=== PATIENT | female | born 1980 | race Caucasian/White ===

== ENCOUNTER 2019-02-10 16:40 | Inpatient (IN) | payer OTHER ==
[~2019-02-10] VITALS: Ht 160 cm; Wt 108.0 kg
--- NOTE | 2019-02-10 16:40 | NUR ---
PT BIBSEMIRANDA FROM [facility] FOR CP AND DIZZINESS X 10 DAYS, PT AAOX4, -SOB, NAD NOTED, VSS ,PENDING MD BHAT
[2019-02-10] MEDS ORDERED: IV NS 0.9% 1,000 ML BAG IV ONE (17:00)
[2019-02-10 17:08] LABS: BASOPHILS # (AUTO) 0.1 /CMM (0.0-0.2); EOSINOPHILS % (AUTO) 5.7 % (0.0-6.0); HEMATOCRIT 24 % (33-45); HEMOGLOBIN 7.4 g/dL (11.5-14.8); LYMPHOCYTES # (AUTO) 2.3 /CMM (0.8-4.8); LYMPHOCYTES % (AUTO) 26.3 % (20.0-44.0); MEAN CORPUSCULAR HGB CONC 31 g/dl (31.0-36.0); MEAN CORPUSCULAR VOLUME 64 fL (82-100); MONOCYTES # (AUTO) 0.7 /CMM (0.1-1.30); MONOCYTES % (AUTO) 8.1 % (2.0-12.0); NEUTROPHILS # (AUTO) 5.1 /CMM (1.8-8.9); NEUTROPHILS % (AUTO) 58.9 % (43.0-81.0); PLATELET COUNT (AUTO) 259 /CMM (150-450); RED BLOOD CELL COUNT(AUTO) 3.77 MIL/uL (4.0-5.2); WHITE BLOOD COUNT (AUTO) 8.6 K/uL (4.3-11.0)
[2019-02-10 17:19] LABS: CALCIUM, SERUM 8.6 mg/dL (8.5-10.1); CARBON DIOXIDE 23 mmol/L (21-32); CHLORIDE 101 mmol/L (98-107); CREATININE 0.7 mg/dL (0.6-1.3); GLUCOSE 75 mg/dL (74-106); POTASSIUM 3.5 mmol/L (3.5-5.1); SODIUM SERUM 134 mmol/L (136-145); UREA NITROGEN, BLOOD 11 mg/dL (7-18)
[2019-02-10 17:24] LABS: ALANINE AMINOTRANSFERASE 16 U/L (12-78); ALBUMIN 3.3 g/dL (3.4-5.0); ALKALINE PHOSPHATASE 51 U/L (46-116); ASPARTATE AMINOTRANSFERASE 10 U/L (15-37); BILIRUBIN,DIRECT 0.1 mg/dL (0.0-0.2); BILIRUBIN,TOTAL 0.3 mg/dL (0.2-1.0); TOTAL PROTEIN, SERUM 7.3 g/dL (6.4-8.2)
[2019-02-10 17:32] LABS: THYROID STIMULATING HORMONE 73.067 uIU/mL (0.358-3.74)
[2019-02-10 17:52] LABS: BAND % (MANUAL) 1 % (0.0-5.0); EOSINOPHILS % (MANUAL) 4 % (0-4); LYMPHOCYTES % (MANUAL) 25 % (16-48); MONOCYTES % (MANUAL) 2 % (0-11.0); NEUTROPHILS % (MANUAL) 68 (42-76)
--- NOTE | 2019-02-10 19:26 | NUR ---
CALLED BEATRIZ CRUZ DNP PAGED
[2019-02-10 19:38] LABS: APPEARANCE,URINE SL CLOUDY (CLEAR); BILIRUBIN,URINE NEGATIVE (NEGATIVE); BLOOD, URINE TRACE Ery/uL (NEGATIVE); COLOR,URINE YELLOW (YELLOW); KETONES,URINE NEGATIVE (NEGATIVE); LEUKOCYTE ESTERASE ,URINE 2+ (NEGATIVE); NITRITE, URINE NEGATIVE (NEGATIVE); PROTEIN,URINE NEGATIVE (NEGATIVE); UGLUCOSE NEGATIVE (NEGATIVE); UROBILINOGEN,URINE 0.2 EU/dL (0.2)
[2019-02-10 19:57] LABS: BACTERIA,URINE 3+ /HPF (None Seen); SQUAMOUS EPITHELIAL CELL,UR 0-2 /HPF (None Seen); WBC,URINE 21-50 /HPF (0-3)
--- NOTE | 2019-02-10 20:04 | NUR ---
REPORT GIVEN TO MARIANO SINGH FOR LEIGHTON.
[2019-02-10 20:30] VITALS: BP 111/72
--- NOTE | 2019-02-10 20:39 | NUR ---
RN OPENING NOTES PT RECEIVED FROM ER VIA [place]. A/OX4. ON ROOM AIR, BREATHING EVEN AND UNLABORED. DENIES SOB AT THIS TIME. SLIGHTLY NAUSEOUS AND C/O HEADACHE 11/23. IV TO RAC PATENT AND INTACT. ORIENTED PT TO ROOM AND CALL LIGHT. HOB ELEVATED. BILAT. UPPER SIDE RAILS IN PLACE. AWAITING ADMITTING ORDERED. WILL CONTINUE TO MONITOR
[2019-02-10 20:51] VITALS: BP 111/72
[2019-02-10] MEDS ORDERED: ASPIRIN/ACETAMINOPHEN/CAFFEINE 1 EACH TABLET PO ONE (21:30)
[2019-02-10] MEDS ORDERED: ACETAMINOPHEN 325 MG TABLET PO PRN (22:00)
[2019-02-10] MEDS ORDERED: ONDANSETRON HCL/PF 4 MG/2 ML VIAL IV PRN (22:00)
[2019-02-10] MEDS ORDERED: ONDANSETRON HCL/PF 4 MG/2 ML VIAL IVP PRN (23:30)
[2019-02-11] MEDS: IV LR 1000 ML 1,000 ML IV PRN ×2 (00:07→11:16)
[2019-02-11] MEDS: CEPHALEXIN MONOHYDRATE 250 MG CAPSULE PO SCH ×5 (00:07→23:07)
--- NOTE | 2019-02-11 06:32 | NUR ---
MS/RN CLOSING NOTES PT ASLEEP, RESPONSIVE TO NAME. A/OX4. ON ROOM AIR, BREATHING EVEN AND UNLABORED. DENIES SOB, CP AND N/V AT THIS TIME. HOB ELEVATED. NO SIGNIFICANT CHANGES OVERNIGHT. ALL NEEDS MET AND ANTICIPATED. BED IN LOW/LOCKED POSITION WITH CALL LIGHT IN REACH. BILAT. UPPER SIDE RAILS IN PLACE. IV TO RAC PATENT AND INTACT RUNNING IVF ORDERED. WILL ENDORSE TO DAY SHIFT RN LEIGHTON.
[2019-02-11 06:53] LABS: BILIRUBIN,TOTAL 0.3 mg/dL (0.2-1.0); CALCIUM, SERUM 8.2 mg/dL (8.5-10.1); CREATININE 0.8 mg/dL (0.6-1.3); MAGNESIUM 1.9 mg/dL (1.8-2.4); PHOSPHORUS 3.7 mg/dL (2.5-4.9); POTASSIUM 3.3 mmol/L (3.5-5.1); TOTAL PROTEIN, SERUM 6.8 g/dL (6.4-8.2)
[2019-02-11 06:55] LABS: BASOPHILS # (AUTO) 0.1 /CMM (0.0-0.2); BASOPHILS % (AUTO) 1.3 % (0.0-2.0); EOSINOPHILS % (AUTO) 7.5 % (0.0-6.0); HEMATOCRIT 23 % (33-45); HEMOGLOBIN 7.1 g/dL (11.5-14.8); LYMPHOCYTES # (AUTO) 2.2 /CMM (0.8-4.8); MEAN CORPUSCULAR HGB CONC 30 g/dl (31.0-36.0); MEAN CORPUSCULAR VOLUME 65 fL (82-100); MONOCYTES # (AUTO) 0.6 /CMM (0.1-1.30); MONOCYTES % (AUTO) 7.8 % (2.0-12.0); NEUTROPHILS # (AUTO) 3.8 /CMM (1.8-8.9); NEUTROPHILS % (AUTO) 52.4 % (43.0-81.0); PLATELET COUNT (AUTO) 239 /CMM (150-450); WHITE BLOOD COUNT (AUTO) 7.2 K/uL (4.3-11.0)
[2019-02-11 06:58] LABS: THYROID STIMULATING HORMONE 88.596 uIU/mL (0.358-3.74)
--- NOTE | 2019-02-11 07:24 | NUR ---
MS RN NOTES RECEIVED PATIENT RESTING COMFORTABLY IN BED IN MODERATE HIGH BACK REST. A/OX 4. NO COMPLAIN OF PAIN/DISCOMFORT AT THIS TIME. IV FLUIDS ON RIGHT AC #20 WITH LR @100ML/HR, PATENT AND INTACT. SAFETY MEASURES IN PLACE. BED IN LOW LOCKED POSITION WITH SIDE RAILS UP X 2. CALL LIGHT WITHIN EASY REACH. WILL CONTINUE TO MONITOR.
[2019-02-11] MEDS: LEVOTHYROXINE SODIUM 75 MCG TABLET PO SCH (07:35)
[2019-02-11 08:00] VITALS: BP 98/55
[2019-02-11] MEDS ORDERED: POTASSIUM CHLORIDE 20 MEQ TAB.PRT.SR PO SCH (10:00)
[2019-02-11] MEDS: ACETAMINOPHEN 325 MG TABLET PO PRN ×2 (11:38→18:10)
[2019-02-11] MEDS: SOD FERRIC GLUC 125 MG in IV NS 0.9% 100 ML IV SCH (13:42)
[2019-02-11 16:00] VITALS: BP 112/67
--- NOTE | 2019-02-11 19:12 | NUR ---
MS RN NOTES PATIENT IN BED RESTING COMFORTABLY IN MODERATE HIGH BACK REST. A/OX 4. IV ACCESS ON RIGHT AC #20, ON SL. PATENT AND INTACT. SAFETY MEASURES IN PLACE. BED IN LOW LOCKED POSITION WITH SIDE RAILS UP X 2. CALL LIGHT WITHIN EASY REACH. WILL ENDORSE TO ED TECH NURSE FOR LEIGHTON.
--- NOTE | 2019-02-11 19:30 | NUR ---
MS/RN OPENING NOTES PT RECEIVED AWAKE, FAMILY MEMBERS AT BEDSIDE. A/OX3. ON ROOM AIR, BREATHING EVEN AND UNLABORED. DENIES SOB AND PAIN AT THIS TIME. IV TO RAC PATENT AND INTACT. HOB ELEVATED. NO NEEDS EXPRESSED AT THIS TIME. NO C/O CP, N/V. BED IN LOW/LOCKED POSITION WITH CALL LIGHT IN REACH. BILAT. UPPER SIDE RAILS IN PLACE. WILL CONTINUE TO MONITOR
[2019-02-11 20:00] VITALS: BP 100/59
--- NOTE | 2019-02-12 00:04 | NUR ---
MS/RN NOTES PT C/O INSOMNIA. REQUESTING MEDICATION FOR SLEEP. WILMA CRUZ WITH ORDERS FOR BENADRYL 50MG PO QHS. WILL CARRY OUT
[2019-02-12] MEDS ORDERED: diphenhydrAMINE HCL 50 MG CAPSULE PO PRN (00:30)
[2019-02-12] MEDS: CEPHALEXIN MONOHYDRATE 250 MG CAPSULE PO SCH ×2 (06:25→12:58)
[2019-02-12] MEDS: LEVOTHYROXINE SODIUM 75 MCG TABLET PO SCH (06:30)
--- NOTE | 2019-02-12 06:41 | NUR ---
MS/RN CLOSING NOTES PT WITH EYES CLOSED. RESPONSIVE TO NAME. HOB ELEVATED. ON ROOM AIR, BREATHING EVEN AND UNLABORED. DENIES SOB AND PAIN AT THIS TIME. IV TO RAC PATENT AND INTACT. NO SIGNIFICANT CHANGES OVERNIGHT. PT SLEPT WELL DURING SHIFT. BED REMAINS IN LOW/LOCKED POSITION WITH CALL LIGHT IN REACH .BILAT. UPPER SIDE RAILS IN PLACE. WILL ENDORSE TO DAY SHIFT RN LEIGHTON.
--- NOTE | 2019-02-12 07:10 | NUR ---
MS RN NOTES PATIENT IN BED ALERT ORIENTED X 4. NO ACUTE DISTRESS NOTED. BREATHING UNLABORED. IV ACCESS PATENT AND INTACT, NO REDNESS OR SWELLING NOTED. SAFETY MEASURES IN PLACE. CALL LIGHT WITHIN REACH. WILL CONTINUE TO MONITOR ACCORDINGLY.
[2019-02-12 07:20] LABS: BASOPHILS # (AUTO) 0.1 /CMM (0.0-0.2); BASOPHILS % (AUTO) 1.4 % (0.0-2.0); EOSINOPHILS % (AUTO) 5.7 % (0.0-6.0); HEMATOCRIT 24 % (33-45); HEMOGLOBIN 7.4 g/dL (11.5-14.8); LYMPHOCYTES # (AUTO) 2.5 /CMM (0.8-4.8); MEAN CORPUSCULAR HGB CONC 30 g/dl (31.0-36.0); MEAN CORPUSCULAR VOLUME 65 fL (82-100); MONOCYTES # (AUTO) 0.6 /CMM (0.1-1.30); MONOCYTES % (AUTO) 7.9 % (2.0-12.0); NEUTROPHILS # (AUTO) 4.3 /CMM (1.8-8.9); PLATELET COUNT (AUTO) 268 /CMM (150-450); RED BLOOD CELL COUNT(AUTO) 3.76 MIL/uL (4.0-5.2); WHITE BLOOD COUNT (AUTO) 7.9 K/uL (4.3-11.0)
[2019-02-12 07:48] LABS: CALCIUM, SERUM 8.7 mg/dL (8.5-10.1); CREATININE 0.8 mg/dL (0.6-1.3); MAGNESIUM 1.9 mg/dL (1.8-2.4); PHOSPHORUS 3.6 mg/dL (2.5-4.9); POTASSIUM 3.9 mmol/L (3.5-5.1)
[2019-02-12 08:07] VITALS: BP 98/60
--- NOTE | 2019-02-12 08:52 | NUR ---
MS RN NOTES SEEN AND EVALUATED BY DR MARU LEE WITH NEW ORDERS MADE.
[2019-02-12] MEDS ORDERED: CEPH250C PO (08:56)
[2019-02-12] MEDS ORDERED: LEVO75TA PO (08:56)
[2019-02-12] MEDS ORDERED: FERR325T23 PO (08:56)
[2019-02-12] MEDS: SOD FERRIC GLUC 125 MG in IV NS 0.9% 100 ML IV SCH (14:11)
--- NOTE | 2019-02-12 16:30 | NUR ---
MS RN NOTES PATIENT DISCHARGE HOME WITH STABLE VITAL SIGNS, NO ACUTE DISTRESS NOTED. BREATHING UNLABORED. DISCHARGE INSTRUCTIONS GIVEN TO THE PATIENT INCLUDING NEW PRESCRIPTIONS AND FOLLOW UP APPOINTMENT VERBALIZED UNDERSTANDING. ALL BELONGINGS ACCOUNTED FOR. IV ACCESS REMOVED, NO BLEEDING, NO REDNESS , NO SWELLING NOTED. SKIN IS INTACT. ASSISTED TO THE LOBBY PICKED UP BY MOTHER VIA PRIVATE CAR IN STABLE CONDITION.
== END 2019-02-12 16:30 | disposition home or self-care (01) | DRG 566 ==
LOC: ER 16:42 → MED 19:52
PROVIDERS: ADMIT Student in an Organized Health Care Education/Training Program; ATTEND Family Medicine
DX: O99.281 Endocrine, nutritional and metabolic diseases complicating pregnancy, first trimester (principal); E44.0 Moderate protein-calorie malnutrition; E87.1 Hypo-osmolality and hyponatremia; E88.09 Other disorders of plasma-protein metabolism, not elsewhere classified; O23.41 Unspecified infection of urinary tract in pregnancy, first trimester; E86.1 Hypovolemia; O99.011 Anemia complicating pregnancy, first trimester; E89.0 Postprocedural hypothyroidism; B96.20 Unspecified Escherichia coli [E. coli] as the cause of diseases classified elsewhere; D50.9 Iron deficiency anemia, unspecified; E87.6 Hypokalemia; R07.9 Chest pain, unspecified; Z3A.01 Less than 8 weeks gestation of pregnancy
CPT/HCPCS: 36415; 71045-TC; 80048-TC; 80053-TC; 80061-TC; 80076-TC; 81000-TC; 83540-TC; 83735-TC; 84100-TC; 84439-TC; 84443-TC; 84481; 84484-TC; 84702-TC; 85025-TC; 85045-TC; 85652-TC; 85730-TC; 86850-TC; 87081-TC; 87086-TC; 87186-TC; G0378; J2405; J2916; J7030; J7120; Q0163

== ENCOUNTER 2019-07-11 06:11 | Emergency (ER) | payer OTHER ==
[~2019-07-11] VITALS: Ht 160 cm; Wt 90.7 kg
[~2019-07-11 06:11] MED LIST: CEPH250C PO; FERR325T23 PO; LEVO75TA PO
--- NOTE | 2019-07-11 06:25 | NUR ---
C/O MIDEPIGASTRIC PAIN RADIATING TO BACK WITH NAUSEA X2 HRS TELESALES MANAGER.
--- NOTE | 2019-07-11 06:30 | NUR ---
at the bed side
[2019-07-11] MEDS ORDERED: LIDOCAINE VISCOUS 2% UD 15 ML UDC ONE (06:43)
[2019-07-11] MEDS ORDERED: FAMOTIDINE/PF INJ 20 MG/2 ML VIAL IV ONE ×2 (06:44→07:00)
[2019-07-11] MEDS ORDERED: MAG HYDROX/AL HYDROX/SIMETH 30 ML UDC ONE (06:44)
[2019-07-11] MEDS ORDERED: ONDANSETRON HCL/PF 4 MG/2 ML VIAL ONE (06:44)
[2019-07-11 06:50] LABS: BASOPHILS # (AUTO) 0.1 /CMM (0.0-0.2); BASOPHILS % (AUTO) 1.6 % (0.0-2.0); EOSINOPHILS % (AUTO) 6.7 % (0.0-6.0); HEMATOCRIT 32 % (33-45); LYMPHOCYTES # (AUTO) 2.4 /CMM (0.8-4.8); LYMPHOCYTES % (AUTO) 30.3 % (20.0-44.0); MEAN CORPUSCULAR HGB CONC 31 g/dl (31.0-36.0); MEAN CORPUSCULAR VOLUME 69 fL (82-100); MONOCYTES # (AUTO) 0.5 /CMM (0.1-1.30); MONOCYTES % (AUTO) 6.6 % (2.0-12.0); NEUTROPHILS # (AUTO) 4.3 /CMM (1.8-8.9); NEUTROPHILS % (AUTO) 54.8 % (43.0-81.0); PLATELET COUNT (AUTO) 284 /CMM (150-450); RED BLOOD CELL COUNT(AUTO) 4.61 MIL/uL (4.0-5.2); WHITE BLOOD COUNT (AUTO) 7.9 K/uL (4.3-11.0)
[2019-07-11 06:51] LABS: APPEARANCE,URINE SL CLOUDY (CLEAR); BILIRUBIN,URINE NEGATIVE (NEGATIVE); BLOOD, URINE MODERATE Ery/uL (NEGATIVE); COLOR,URINE YELLOW (YELLOW); KETONES,URINE NEGATIVE (NEGATIVE); LEUKOCYTE ESTERASE ,URINE MODERATE (NEGATIVE); NITRITE, URINE NEGATIVE (NEGATIVE); PROTEIN,URINE NEGATIVE (NEGATIVE); UGLUCOSE NEGATIVE (NEGATIVE); UROBILINOGEN,URINE 0.2 EU/dL (0.2)
[2019-07-11] MEDS ORDERED: ONDANSETRON HCL/PF 4 MG/2 ML VIAL IVP ONE (07:00)
[2019-07-11] MEDS ORDERED: LIDOCAINE VISCOUS 2% UD 15 ML UDC MM ONE (07:00)
[2019-07-11] MEDS ORDERED: IV NS 0.9% 1,000 ML BAG IV ONE (07:00)
[2019-07-11] MEDS ORDERED: MAG HYDROX/AL HYDROX/SIMETH 30 ML UDC PO ONE (07:00)
[2019-07-11 07:05] LABS: CALCIUM, SERUM 8.4 mg/dL (8.5-10.1); CARBON DIOXIDE 25 mmol/L (21-32); CHLORIDE 106 mmol/L (98-107); GLUCOSE 98 mg/dL (74-106); POTASSIUM 3.8 mmol/L (3.5-5.1); SODIUM SERUM 142 mmol/L (136-145); UREA NITROGEN, BLOOD 19 mg/dL (7-18)
[2019-07-11 07:21] LABS: ALANINE AMINOTRANSFERASE 17 U/L (12-78); ALBUMIN 3.5 g/dL (3.4-5.0); ALKALINE PHOSPHATASE 48 U/L (46-116); ASPARTATE AMINOTRANSFERASE 11 U/L (15-37); BILIRUBIN,DIRECT 0.1 mg/dL (0.0-0.2); BILIRUBIN,TOTAL 0.2 mg/dL (0.2-1.0); LIPASE 270 U/L (73-393); TOTAL PROTEIN, SERUM 7.7 g/dL (6.4-8.2)
[2019-07-11 07:36] LABS: BAND % (MANUAL) 4 % (0.0-5.0); EOSINOPHILS % (MANUAL) 4 % (0-4); LYMPHOCYTES % (MANUAL) 33 % (16-48); MONOCYTES % (MANUAL) 5 % (0-11.0); NEUTROPHILS % (MANUAL) 54 (42-76)
--- NOTE | 2019-07-11 07:40 | NUR ---
PATIENT STILL C/O ABDOMIANL PAIN .BUT IMPROVED.V/S STABLE
[2019-07-11] MEDS ORDERED: MORPHINE SULFATE INJ 2 MG/ML DISP.SYRIN IV ONE (08:00)
[2019-07-11] MEDS ORDERED: MORPHINE SULFATE INJ 2 MG/ML DISP.SYRIN ONE (08:12)
--- NOTE | 2019-07-11 08:30 | NUR ---
IV removed. Catheter intact and site benign. Pressure and 4x4 applied to site. No bleeding noted.
[2019-07-11 08:32] VITALS: BP 116/60
--- NOTE | 2019-07-11 08:33 | NUR ---
DISCHARGE INSTRUCTIONS GIVEN WITH NEW PRESCRIPTIONS.PATIENT VERBALIZED UNDERSTNDING.
--- NOTE | 2019-07-11 08:36 | NUR ---
Patient discharged to home in stable condition. Written and verbal after care instructions given. Patient verbalizes understanding of instruction.
--- NOTE | 2019-07-11 08:46 | NUR ---
PATIENT DISCAHRGED TO WAITING ROOM WITH FAMILY.INSTRUCTED NOT TO DRIVE.
== END 2019-07-11 08:46 | disposition home or self-care (01) ==
LOC: ER 06:16
DX: R10.13 Epigastric pain (principal); R11.2 Nausea with vomiting, unspecified; Z98.890 Other specified postprocedural states; Z88.1 Allergy status to other antibiotic agents; Z79.899 Other long term (current) drug therapy
CPT/HCPCS: 36415; 71045; 80048; 80076; 81001; 83690; 84484; 84703; 85025; 93005; 96361; 96374; 96375; 99284; J2270; J2405; J3490; J7030; 81000-TC

== ENCOUNTER 2020-03-11 23:46 | Emergency (ER) | payer OTHER ==
[~2020-03-11] VITALS: Ht 160 cm; Wt 108.9 kg
[2020-03-12] MEDS ORDERED: ONDANSETRON HCL/PF 4 MG/2 ML VIAL ONE (00:04)
[2020-03-12] MEDS ORDERED: MORPHINE SULFATE INJ 4 MG/ML DISP.SYRIN ONE (00:05)
--- NOTE | 2020-03-12 00:09 | NUR ---
PATIENT CAME TO ER BED 2 C/O RIGHT UPPER ABDOMINAL PAIN RADIATING TO THE RIGHT UPPER BACK SINCE 1600 OF YESTERDAY (03/11/2020). PATIENT C/O OF NAUSEA. PATIENT IS AAOX4. NO SOB. BREATHING EVENLY AND UNLABORED ON ROOM AIR. CONNECTED TO THE MONITOR.
[2020-03-12] MEDS: IV NS 0.9% 1,000 ML BAG IV ONE (00:18)
[2020-03-12] MEDS: MORPHINE SULFATE INJ 2 MG/ML DISP.SYRIN IV ONE (00:18)
[2020-03-12] MEDS: ONDANSETRON HCL/PF 4 MG/2 ML VIAL IVP ONE (00:18)
[2020-03-12 00:23] LABS: APPEARANCE,URINE SL CLOUDY (CLEAR); BILIRUBIN,URINE SMALL (NEGATIVE); BLOOD, URINE LARGE Ery/uL (NEGATIVE); COLOR,URINE ORANGE (YELLOW); KETONES,URINE NEGATIVE (NEGATIVE); LEUKOCYTE ESTERASE ,URINE MODERATE (NEGATIVE); NITRITE, URINE POSITIVE (NEGATIVE); PH,URINE 6.5 (5.0-8.0); PROTEIN,URINE 100 mg/dl (NEGATIVE); UGLUCOSE NEGATIVE (NEGATIVE)
[2020-03-12 00:24] LABS: BASOPHILS # (AUTO) 0.1 /CMM (0.0-0.2); BASOPHILS % (AUTO) 1.2 % (0.0-2.0); EOSINOPHILS % (AUTO) 5.2 % (0.0-6.0); HEMATOCRIT 26 % (33-45); HEMOGLOBIN 8.1 g/dL (11.5-14.8); LYMPHOCYTES # (AUTO) 1.9 /CMM (0.8-4.8); LYMPHOCYTES % (AUTO) 27.2 % (20.0-44.0); MEAN CORPUSCULAR HGB CONC 31 g/dl (31.0-36.0); MEAN CORPUSCULAR VOLUME 70 fL (82-100); MONOCYTES # (AUTO) 0.5 /CMM (0.1-1.30); MONOCYTES % (AUTO) 6.9 % (2.0-12.0); NEUTROPHILS # (AUTO) 4.1 /CMM (1.8-8.9); NEUTROPHILS % (AUTO) 59.5 % (43.0-81.0); PLATELET COUNT (AUTO) 273 /CMM (150-450); RED BLOOD CELL COUNT(AUTO) 3.76 MIL/uL (4.0-5.2); WHITE BLOOD COUNT (AUTO) 6.9 K/uL (4.3-11.0)
[2020-03-12 00:27] LABS: BACTERIA,URINE Few /HPF (None Seen); RBC,URINE TOO NUMEROUS TO COUN /HPF (0-2); SQUAMOUS EPITHELIAL CELL,UR Few /HPF (None Seen)
[2020-03-12 00:40] LABS: ALANINE AMINOTRANSFERASE 14 U/L (12-78); ALBUMIN 3.4 g/dL (3.4-5.0); ALKALINE PHOSPHATASE 70 U/L (46-116); ASPARTATE AMINOTRANSFERASE 12 U/L (15-37); BILIRUBIN,DIRECT 0.1 mg/dL (0.0-0.2); BILIRUBIN,TOTAL 0.2 mg/dL (0.2-1.0); CALCIUM, SERUM 8.2 mg/dL (8.5-10.1); CARBON DIOXIDE 27 mmol/L (21-32); CHLORIDE 106 mmol/L (98-107); GLUCOSE 101 mg/dL (74-106); LIPASE 225 U/L (73-393); POTASSIUM 4.2 mmol/L (3.5-5.1); SODIUM SERUM 140 mmol/L (136-145); TOTAL PROTEIN, SERUM 7.3 g/dL (6.4-8.2); UREA NITROGEN, BLOOD 14 mg/dL (7-18)
--- NOTE | 2020-03-12 00:40 | NUR ---
PATIENT TAKEN TO CT.
--- NOTE | 2020-03-12 01:38 | NUR ---
US AT BEDSIDE.
[2020-03-12 02:18] VITALS: BP 116/70
--- NOTE | 2020-03-12 02:18 | NUR ---
IV removed. Catheter intact and site benign. Pressure and 4x4 applied to site. No bleeding noted.
--- NOTE | 2020-03-12 02:18 | NUR ---
Patient discharged to home in stable condition. Written and verbal after care instructions given. Patient verbalizes understanding of instruction.
== END 2020-03-12 02:19 | disposition home or self-care (01) ==
LOC: ER 23:49
DX: N39.0 Urinary tract infection, site not specified (principal); K80.70 Calculus of gallbladder and bile duct without cholecystitis without obstruction; D64.9 Anemia, unspecified; R11.2 Nausea with vomiting, unspecified; Z98.890 Other specified postprocedural states; Z88.1 Allergy status to other antibiotic agents; Z79.899 Other long term (current) drug therapy
CPT/HCPCS: 36415; 74176; 76705; 80048; 80076; 81001; 83690; 84484; 84703; 85025; 85730; 87086; 93005; 96361; 96374; 96375; 99285; J2270; J2405; J7030 ×2; 81000-TC

== ENCOUNTER 2022-04-08 10:27 | Emergency (ER) | payer MEDICAID, OTHER ==
[~2022-04-08] VITALS: Ht 162.6 cm; Wt 90.7 kg
--- NOTE | 2022-04-08 10:45 | NUR ---
RECEIVED pt 41 yrs female c/o genralized weeknees HX ANIMIA giniale HX ANY ACTIVE bleeding lower or upper bleeding skin pale warm and dry to touch
--- NOTE | 2022-04-08 11:10 | NUR ---
INSERTED ANG CATHETER FR 18 ON RT AC BLOOD drow and sent to lab
--- NOTE | 2022-04-08 11:23 | NUR ---
UA SENT TO LAB BY AUTOMOTIVE MANAGER
[2022-04-08 11:31] LABS: BASOPHILS # (AUTO) 0.1 K/uL (0.0-0.2); BASOPHILS % (AUTO) 1.6 % (0.0-2.0); HEMATOCRIT 22 % (33-45); LYMPHOCYTES # (AUTO) 2.1 K/uL (0.8-4.8); LYMPHOCYTES % (AUTO) 44.4 % (20.0-44.0); MEAN CORPUSCULAR HGB CONC 30 g/dl (31.0-36.0); MEAN CORPUSCULAR VOLUME 68 fL (82-100); MONOCYTES # (AUTO) 0.4 K/uL (0.1-1.30); MONOCYTES % (AUTO) 7.8 % (2.0-12.0); NEUTROPHILS # (AUTO) 2.1 K/uL (1.8-8.9); NEUTROPHILS % (AUTO) 43.2 % (43.0-81.0); PLATELET COUNT (AUTO) 262 K/uL (150-450); RED BLOOD CELL COUNT(AUTO) 3.28 MIL/uL (4.0-5.2); WHITE BLOOD COUNT (AUTO) 4.8 K/uL (4.3-11.0)
[2022-04-08 11:43] LABS: HEMOGLOBIN 6.8 g/dL (11.5-14.8)
[2022-04-08 12:03] LABS: ALBUMIN 3.4 g/dL (3.4-5.0); BILIRUBIN,DIRECT 0.1 mg/dL (0.0-0.2); BILIRUBIN,TOTAL 0.3 mg/dL (0.2-1.0); CALCIUM, SERUM 8.3 mg/dL (8.5-10.1); CREATININE 1.4 mg/dL (0.6-1.3); POTASSIUM 3.4 mmol/L (3.5-5.1); TOTAL PROTEIN, SERUM 7.1 g/dL (6.4-8.2)
--- NOTE | 2022-04-08 12:42 | NUR ---
PT FULLY UNDERSTOOD RISK and binfete for blood transfution and CONSENT WAS SIGN BY PATENT
--- NOTE | 2022-04-08 13:00 | NUR ---
STRTED 1 ST UNIT OF BLOOD TRANSFUTUION AND FALLOW POLYS AND PROCEDURE 2 NURSE RN AT BED side and monitring pt closly in ist 15 min no advanse reaction
--- NOTE | 2022-04-08 15:01 | NUR ---
REsting and asleepy with blood transfution infused and patent
--- NOTE | 2022-04-08 15:30 | NUR ---
1 UNIT OF BLOOD TRANSFUTION COMPLETED NO BLOOD REACTION VS STABLE PALN TO REAPET CBC AND D/C HOME
--- NOTE | 2022-04-08 16:00 | NUR ---
blood drow for repeat H&H no active bleeding an pain skin color pinck at this
[2022-04-08 16:22] LABS: BAND % (MANUAL) 1 % (0.0-5.0); EOSINOPHILS % (MANUAL) 3 % (0-4); LYMPHOCYTES % (MANUAL) 47 % (16-48); MONOCYTES % (MANUAL) 1 % (0-11.0); NEUTROPHILS % (MANUAL) 47 (42-76); REACTIVE LYMPHOCYTES 1 % (0-0)
--- NOTE | 2022-04-08 17:00 | NUR ---
Patient discharged to home in stable condition. Written and verbal after care instructions given. Patient verbalizes understanding of instruction.
[2022-04-08 17:17] VITALS: BP 113/71
== END 2022-04-08 17:18 | disposition home or self-care (01) ==
LOC: ER 10:33
DX: D50.9 Iron deficiency anemia, unspecified (principal); R53.83 Other fatigue; E89.0 Postprocedural hypothyroidism; Z79.890 Hormone replacement therapy; Z98.84 Bariatric surgery status; Z83.3 Family history of diabetes mellitus; Z82.49 Family history of ischemic heart disease and other diseases of the circulatory system; Z20.822 Contact with and (suspected) exposure to COVID-19
CPT/HCPCS: 99285; 36430; 85025; 85027; 80048; 80076; 84703; 85007; 36415; 84443; 86850; 82728; 87426; 86923; J7050; J7040; P9016; C9803

== ENCOUNTER 2022-11-04 14:18 | Inpatient (IN) | payer BC, MEDICAID ==
[~2022-11-04] VITALS: Ht 160 cm; Wt 95.7 kg
--- NOTE | 2022-11-04 14:20 | NUR ---
RECEIVED PT 42 YRS FEMALE CAME FROM HOME ACOMPANY BY MOTHER for genralized weekness and hx ANIMIA AWAKE and alert accompny by heath skin color pale warm and dry to touch
--- NOTE | 2022-11-04 14:30 | NUR ---
Seen BY AT BED SIDE SPOOKING WITH PT
--- NOTE | 2022-11-04 14:50 | NUR ---
INSERTED ANGO CATHETER G 18 ON LT AC BLOOD DROW AND SENT TO LAB
[2022-11-04 16:00] LABS: BASOPHILS # (AUTO) 0.2 K/uL (0.0-0.2); BASOPHILS % (AUTO) 2.7 % (0.0-2.0); EOSINOPHILS % (AUTO) 4.6 % (0.0-6.0); LYMPHOCYTES # (AUTO) 2.3 K/uL (0.8-4.8); LYMPHOCYTES % (AUTO) 40.7 % (20.0-44.0); MEAN CORPUSCULAR HGB CONC 29 g/dl (31.0-36.0); MEAN CORPUSCULAR VOLUME 70 fL (82-100); MONOCYTES # (AUTO) 0.4 K/uL (0.1-1.30); MONOCYTES % (AUTO) 6.7 % (2.0-12.0); NEUTROPHILS # (AUTO) 2.5 K/uL (1.8-8.9); NEUTROPHILS % (AUTO) 45.3 % (43.0-81.0); PLATELET COUNT (AUTO) 284 K/uL (150-450); RED BLOOD CELL COUNT(AUTO) 2.84 MIL/uL (4.0-5.2); WHITE BLOOD COUNT (AUTO) 5.5 K/uL (4.3-11.0)
[2022-11-04 16:10] LABS: HEMOGLOBIN 5.7 g/dL (11.5-14.8)
[2022-11-04 16:11] LABS: HEMATOCRIT 20 % (33-45)
--- NOTE | 2022-11-04 16:20 | NUR ---
MOVE SHEET SUBMITTED.
--- NOTE | 2022-11-04 16:21 | NUR ---
HALLE CLEARY SENT TO LAB
[2022-11-04 16:30] LABS: ALBUMIN 3.6 g/dL (3.4-5.0); BILIRUBIN,DIRECT 0.1 mg/dL (0.0-0.2); BILIRUBIN,TOTAL 0.3 mg/dL (0.2-1.0); CALCIUM, SERUM 8.9 mg/dL (8.5-10.1); CREATININE 1.4 mg/dL (0.6-1.3); POTASSIUM 3.5 mmol/L (3.5-5.1); TOTAL PROTEIN, SERUM 7.2 g/dL (6.4-8.2)
[2022-11-04] MEDS ORDERED: LEVO125T8 PO (16:30)
--- NOTE | 2022-11-04 16:42 | NUR ---
PT SIGN CONSENT FOR BLOOD TRANSFUTION FULLY AND VERBLIZED UNDERSTOOD RISK AND Benefits of blood transfution
--- NOTE | 2022-11-04 17:15 | NUR ---
DINESES S&S OF ACIVE BLEEDING
--- NOTE | 2022-11-04 17:59 | NUR ---
CALLED BLOOD BANK ONE UNTE READY IN 45MIN
--- NOTE | 2022-11-04 18:01 | NUR ---
DR. DAVID FROM [facility] [phone] MIRZA.
--- NOTE | 2022-11-04 18:13 | NUR ---
room 118-1 admitting aware
[2022-11-04] MEDS ORDERED: MAG HYDROX/AL HYDROX/SIMETH 30 ML UDC PO PRN (18:30)
[2022-11-04] MEDS ORDERED: Z GUARD REMEDY 4 OZ OINT TP PRN (18:30)
[2022-11-04] MEDS ORDERED: ZOLPIDEM TARTRATE 5 MG TABLET PO PRN (18:30)
[2022-11-04] MEDS ORDERED: ONDANSETRON HCL/PF 4 MG/2 ML VIAL IVP PRN (18:30)
[2022-11-04] MEDS ORDERED: MAGNESIUM HYDROXIDE 30 ML UDC PO PRN (18:30)
[2022-11-04 18:56] LABS: BAND % (MANUAL) 1 % (0.0-5.0); EOSINOPHILS % (MANUAL) 3 % (0-4); LYMPHOCYTES % (MANUAL) 42 % (16-48); MONOCYTES % (MANUAL) 4 % (0-11.0); NEUTROPHILS % (MANUAL) 50 (42-76)
--- NOTE | 2022-11-04 19:35 | NUR ---
HAND OFF LASHON SINGH TO ROOM 118-1
--- NOTE | 2022-11-04 19:45 | NUR ---
RN NOTES ADMITTED A 42 Y/O FEMALE PATIENT FROM ER WITH DX OF SEVERE SYMPTOMATIC ANEMIA VIA GURNEY. PATIENT IS AMBULATORY A/O X4 ON ROOM AIR. VITAL SIGNS TAKEN AND RECORDED. AFEBRILE. WITH IV ACCESS AT R AC # 20 PATENT FLUSHES WELL. COMPLETE BODY ASSESSMENT DONE. SKIN IS INTACT. BELONGINGS CHECKED AND ACCOUNTED. ALL SAFETY MEASURES IN PLACE NO ACTIVE BLEEDING NOTED AT 5THIS TIME. WILL CLOSELY MONITOR THE PATIENT FOR LEIGHTON
[2022-11-04 20:00] VITALS: BP 106/66
[2022-11-04] MEDS: IV NS 0.9% 1,000 ML IV PRN (20:24)
--- NOTE | 2022-11-04 21:05 | NUR ---
RN NOTES FOZIA FROM BLOOD BANK CALLED INFORMING PATIENT HAS A ANTIBODY AND THEY ARE WORKINGF ON HER BLOOD COMING FROM [facility]
[2022-11-04] MEDS: ACETAMINOPHEN 325 MG TABLET PO PRN (22:17)
[2022-11-04 23:19] LABS: BASOPHILS # (AUTO) 0.1 K/uL (0.0-0.2); BASOPHILS % (AUTO) 2.3 % (0.0-2.0); EOSINOPHILS % (AUTO) 4.3 % (0.0-6.0); LYMPHOCYTES # (AUTO) 3.3 K/uL (0.8-4.8); LYMPHOCYTES % (AUTO) 56.8 % (20.0-44.0); MEAN CORPUSCULAR HGB CONC 29 g/dl (31.0-36.0); MEAN CORPUSCULAR VOLUME 69 fL (82-100); MONOCYTES # (AUTO) 0.3 K/uL (0.1-1.30); MONOCYTES % (AUTO) 5.5 % (2.0-12.0); NEUTROPHILS # (AUTO) 1.8 K/uL (1.8-8.9); NEUTROPHILS % (AUTO) 31.1 % (43.0-81.0); PLATELET COUNT (AUTO) 248 K/uL (150-450); RED BLOOD CELL COUNT(AUTO) 2.65 MIL/uL (4.0-5.2); WHITE BLOOD COUNT (AUTO) 5.8 K/uL (4.3-11.0)
[2022-11-04 23:54] LABS: HEMATOCRIT 18 % (33-45); HEMOGLOBIN 5.3 g/dL (11.5-14.8)
[2022-11-05] VITALS (17 sets, daily range): BP systolic 92–107; BP diastolic 62–76
--- NOTE | 2022-11-05 02:23 | NUR ---
RN NOTES CALLED BLOOD BANK SPOKE TO [facility] BLOOD STILL NOT AVAILABLE
--- NOTE | 2022-11-05 06:35 | NUR ---
RN NOTES CALLED LABORATORY SPOKE TO [facility] BLOOD STILL NOT AVAILABLE DUE TO PATIENT HAS AN ANTIBODY. DAINA ARAYA MADE AWARE. WILL CONTINUE TO MONITOR
[2022-11-05] MEDS: IV NS 0.9% 1,000 ML IV PRN (06:42)
--- NOTE | 2022-11-05 06:48 | NUR ---
RN NOTES PATIENT STILL ON IVF NS 100CC/HR NO SOB NO DISTRESS. NO ACTIVE BLEEDING NOTED. ALL DUE NEEDS ATTENDED. WILL ENDORSED TO MORNING SHIFT FORE LEIGHTON
--- NOTE | 2022-11-05 07:10 | NUR ---
CROSS COUNTRY COACH OPEN NOTE: AWAKE AND ALERT TIMES FOUR. PALE. MOIST ORAL MUCOSA. SATING AT 98 % AT ROOM AIR. ON BUSINESS SERVICES CLERK SINUS RHYTHM 68. IV ON RIGHT AC G18. ON IVF OF NS 100ML/HR. ON CLEAR LIQUID DIET. HOB ELEVATED, BILATERAL HALF SIDE RAILS UPX2. BED IN LOW POSITION, LOCKED, AND EXIT ALARM ON. CALL LIGHT IN REACH.
[2022-11-05 07:19] LABS: ALBUMIN 3.2 g/dL (3.4-5.0); BILIRUBIN,TOTAL 0.2 mg/dL (0.2-1.0); CALCIUM, SERUM 8.3 mg/dL (8.5-10.1); CREATININE 1.2 mg/dL (0.6-1.3); MAGNESIUM 2.5 mg/dL (1.8-2.4); PHOSPHORUS 3.6 mg/dL (2.5-4.9); POTASSIUM 3.6 mmol/L (3.5-5.1); TOTAL PROTEIN, SERUM 6.4 g/dL (6.4-8.2)
[2022-11-05] MEDS: LEVOTHYROXINE SODIUM 125 MCG TABLET PO SCH (08:29)
[2022-11-05 13:29] LABS: BASOPHILS % (MANUAL) 0 % (0.0-2.0); EOSINOPHILS % (MANUAL) 2 % (0-4); LYMPHOCYTES % (MANUAL) 51 % (16-48); MONOCYTES % (MANUAL) 6 % (0-11.0); NEUTROPHILS % (MANUAL) 41 (42-76)
--- NOTE | 2022-11-05 15:00 | NUR ---
Terri [place] MILLING PLANER OPERATOR informed patient second unit not available until about two more hours per Lab blood coming from [facility].
--- NOTE | 2022-11-05 17:15 | NUR ---
SPOKE TO [facility] AND PER [facility]LO[facility] IS NOT READY YET. "IT HAS NOT ARRIVED."
--- NOTE | 2022-11-05 19:00 | NUR ---
ENVELOPE PATTERNMAKER CLOSING NOTE: ALERT TIMES FOUR. AWAKE. PALE. RESPIRATIONS ARE EVEN AND UNLABORED AT ROOM AIR, SATING AT 95%. MOIST ORAL MUCOSA. MEDICAL TRANSPORT SPECIALIST SINUS RHYTHM 68. IV ON RIGHT AC G18 WITH NS 100 ML/HR. CONTINENT OF URINE, UA WAS COLLECTED, STILL FOR OB COLLECTION. PATIENT TO BE NPO AFTER MN FOR US PELVIC COMPLETE. VISITED BY FRIENDS AND FAMILY DURING DAY. SPOKE TO FOZIA AT BLOOD BANK AND STATED HE HAS THE BLOOD AND THAT HE IS JUST TESTING IT FOR SECOND UNIT PRBC'S, TO GIVE HIM 15-20 MINUTES, PATIENT INFORMED. HOB ELEVATED, BILATERAL HALF SIDE RAILS UP X2. BED IN LOW POSITION, LOCKED, EXIT ALARM ON, CALL LIGHT IN REACH.
[2022-11-05 19:33] LABS: BASOPHILS # (AUTO) 0.1 K/uL (0.0-0.2); BASOPHILS % (AUTO) 1.2 % (0.0-2.0); EOSINOPHILS % (AUTO) 3.5 % (0.0-6.0); HEMATOCRIT 23 % (33-45); LYMPHOCYTES # (AUTO) 2.8 K/uL (0.8-4.8); LYMPHOCYTES % (AUTO) 48.3 % (20.0-44.0); MEAN CORPUSCULAR HGB CONC 29 g/dl (31.0-36.0); MEAN CORPUSCULAR VOLUME 75 fL (82-100); MONOCYTES # (AUTO) 0.3 K/uL (0.1-1.30); MONOCYTES % (AUTO) 5.8 % (2.0-12.0); NEUTROPHILS # (AUTO) 2.4 K/uL (1.8-8.9); NEUTROPHILS % (AUTO) 41.2 % (43.0-81.0); PLATELET COUNT (AUTO) 253 K/uL (150-450); RED BLOOD CELL COUNT(AUTO) 3.09 MIL/uL (4.0-5.2); WHITE BLOOD COUNT (AUTO) 5.8 K/uL (4.3-11.0)
[2022-11-05 19:41] LABS: BILIRUBIN,URINE NEGATIVE (NEGATIVE); COLOR,URINE YELLOW (YELLOW); LEUKOCYTE ESTERASE ,URINE NEGATIVE (NEGATIVE); NITRITE, URINE POSITIVE (NEGATIVE); PH,URINE 5.5 (5.0-8.0); PROTEIN,URINE NEGATIVE (NEGATIVE); UGLUCOSE NEGATIVE (NEGATIVE); UROBILINOGEN,URINE 0.2 EU/dL (0.2)
[2022-11-05 19:59] LABS: HEMOGLOBIN 6.7 g/dL (11.5-14.8)
[2022-11-05 20:14] LABS: BACTERIA,URINE Many /HPF (None Seen); SQUAMOUS EPITHELIAL CELL,UR Moderate /HPF (None Seen)
[2022-11-05 20:15] LABS: WBC,URINE 0-2 /HPF (0-3)
[2022-11-05 20:33] LABS: EOSINOPHILS % (MANUAL) 2 % (0-4); LYMPHOCYTES % (MANUAL) 50 % (16-48); MONOCYTES % (MANUAL) 4 % (0-11.0); NEUTROPHILS % (MANUAL) 44 (42-76)
[2022-11-05 21:21] LABS: THYROID STIMULATING HORMONE 490.332 uIU/mL (0.358-3.74)
[2022-11-06] VITALS: BP 103/75
[2022-11-06] MEDS: IV NS 0.9% 1,000 ML IV PRN ×2 (01:59→16:19)
[2022-11-06 07:06] LABS: BASOPHILS # (AUTO) 0.1 K/uL (0.0-0.2); BASOPHILS % (AUTO) 2.4 % (0.0-2.0); EOSINOPHILS % (AUTO) 4.7 % (0.0-6.0); HEMATOCRIT 27 % (33-45); HEMOGLOBIN 7.9 g/dL (11.5-14.8); LYMPHOCYTES # (AUTO) 2.3 K/uL (0.8-4.8); MEAN CORPUSCULAR HGB CONC 30 g/dl (31.0-36.0); MEAN CORPUSCULAR VOLUME 73 fL (82-100); MONOCYTES # (AUTO) 0.4 K/uL (0.1-1.30); MONOCYTES % (AUTO) 6.7 % (2.0-12.0); NEUTROPHILS # (AUTO) 2.2 K/uL (1.8-8.9); NEUTROPHILS % (AUTO) 42.2 % (43.0-81.0); PLATELET COUNT (AUTO) 265 K/uL (150-450); RED BLOOD CELL COUNT(AUTO) 3.68 MIL/uL (4.0-5.2); WHITE BLOOD COUNT (AUTO) 5.3 K/uL (4.3-11.0)
[2022-11-06 07:27] LABS: CALCIUM, SERUM 8.4 mg/dL (8.5-10.1); CREATININE 1.1 mg/dL (0.6-1.3); POTASSIUM 3.7 mmol/L (3.5-5.1)
--- NOTE | 2022-11-06 07:30 | NUR ---
PT RECEIVED RESTING COMFORTABLY IN BED. NO S/S OR C/O PAIN OR DISTRESS NOTED. SIDERAILS UP X2, CALL LIGHT LEFT WITHIN REACH. WILL CONTINUE PLAN OF CARE.
[2022-11-06 08:00] VITALS: BP 103/68
[2022-11-06] MEDS: LEVOTHYROXINE SODIUM 125 MCG TABLET PO SCH (08:28)
[2022-11-06 12:00] VITALS: BP 111/77
[2022-11-06 12:39] LABS: BASOPHILS % (MANUAL) 0 % (0.0-2.0); EOSINOPHILS % (MANUAL) 3 % (0-4); LYMPHOCYTES % (MANUAL) 49 % (16-48); MONOCYTES % (MANUAL) 5 % (0-11.0); NEUTROPHILS % (MANUAL) 43 (42-76)
[2022-11-06] MEDS: SOD FERRIC GLUC 125 MG in IV NS 0.9% 100 ML IV SCH (13:49)
[2022-11-06] MEDS ORDERED: SOD FERRIC GLUC 125 MG in IV NS 0.9% 100 ML IV SCH (14:00)
[2022-11-06 16:46] VITALS: BP 104/69
--- NOTE | 2022-11-06 18:42 | NUR ---
CHANGE OF SHIFT REPORT PATIENT RESTING COMFORTABLY IN BED. NO S/S OR C/O PAIN OR DISTRESS NOTED. SIDE RAILS UP X2, CALL LIGHT LEFT WITHIN REACH. PT KEPT CLEAN, DRY, AND COMFORTABLE. NO SIGNIFICANT CHANGES SINCE PREVIOUS SHIFT. WILL GIVE REPORT TO DEIDRA SINGH.
--- NOTE | 2022-11-06 19:30 | NUR ---
CERTIFIED FINANCIAL PLANNER OPENING NOTE: RECEIVED REPORT FROM AM NURSE HUBER PT IS ALERT AND ORIENTED X4 PT CAME IN [place] WITH SEVERE ANEMIA. PT IS TELE MONITORED NO SIGNS OF DISTRESS NOTED. FALL AND SAFETY PRECAUTION MAINTAINED. WILL CONTINUE TO MONITOR FOR SAFETY. PT HAS IVF OF NS INFUSING 100 ML/HR TOLERATING WELL NO SIGNS OF INFILTRATION NOTED WILL CONTINUE TO MONITOR.
[2022-11-06 20:00] VITALS: BP 103/70
[2022-11-06] MEDS: ACETAMINOPHEN 325 MG TABLET PO PRN (21:02)
[2022-11-07] VITALS: BP 123/80
[2022-11-07 06:00] VITALS: BP 109/75
--- NOTE | 2022-11-07 07:40 | NUR ---
GRID OPERATOR OPENING NOTE RECEIVED PATIENT IN BED, RESTING, ALERT AND ORIENTED X4. PT IS ON RA BREATHING EVEN AND NON LABORED. PT IS ON EXTERNAL SERVICE ORDER DISPATCHER, NO SIGNS OF DISTRESS NOTED. IV ACCESS RIGHT AC RUNNING NS @100 ML/HR TOLERATING WELL NO SIGNS OF INFILTRATION NOTED. FALL AND SAFETY PRECAUTION MAINTAINED. WILL CONTINUE TO MONITOR FOR SAFETY. WILL CONTINUE TO MONITOR.
[2022-11-07 08:00] VITALS: BP 108/82
[2022-11-07] MEDS: LEVOTHYROXINE SODIUM 125 MCG TABLET PO SCH (08:11)
[2022-11-07 08:23] LABS: BASOPHILS # (AUTO) 0.1 K/uL (0.0-0.2); BASOPHILS % (AUTO) 2.3 % (0.0-2.0); EOSINOPHILS % (AUTO) 4.7 % (0.0-6.0); HEMATOCRIT 28 % (33-45); HEMOGLOBIN 8.2 g/dL (11.5-14.8); LYMPHOCYTES # (AUTO) 2.2 K/uL (0.8-4.8); LYMPHOCYTES % (AUTO) 42.5 % (20.0-44.0); MEAN CORPUSCULAR HGB CONC 29 g/dl (31.0-36.0); MEAN CORPUSCULAR VOLUME 74 fL (82-100); MONOCYTES # (AUTO) 0.4 K/uL (0.1-1.30); MONOCYTES % (AUTO) 7.7 % (2.0-12.0); NEUTROPHILS # (AUTO) 2.3 K/uL (1.8-8.9); NEUTROPHILS % (AUTO) 42.8 % (43.0-81.0); PLATELET COUNT (AUTO) 252 K/uL (150-450); RED BLOOD CELL COUNT(AUTO) 3.84 MIL/uL (4.0-5.2); WHITE BLOOD COUNT (AUTO) 5.3 K/uL (4.3-11.0)
--- NOTE | 2022-11-07 08:28 | NUR ---
PRINT DEVELOPER CLOSING NOTE: PATIENT GIVEN TYLENOL 650MG FOR BODY PAIN AT 2200 AFTERWARD CHECKED PATIENT SHE'S SLEEPING NO SIGNS OF DISTRESSED NOTED. PT ACTIVITY IS BRP BUT GATE IS SLIGHTLY UNSTEADY WILL CONTINUE TO MONITOR FOR SAFETY AND FALLS PT LINEN AND SHEETS CHANGED. ENDORSE TO AM NURSE.
[2022-11-07 12:00] VITALS: BP 116/80
[2022-11-07] MEDS ORDERED: FERR325T23 PO (13:23)
[2022-11-07] MEDS ORDERED: LEVO150T8 PO (13:29)
[2022-11-07] MEDS: SOD FERRIC GLUC 125 MG in IV NS 0.9% 100 ML IV SCH (15:08)
[2022-11-07 16:00] VITALS: BP 137/84
--- NOTE | 2022-11-07 17:10 | NUR ---
HOT DIPPER NOTE PATIENT DISCHARGE IN STABLE MEDICAL CONDITION. A/OX4. VS TAKEN, STABLE AND RECORDED. IV ACCESS REMOVED. NAME ARM BAND REMOVED. EXTERNAL ANIMAL TECHNICIAN REMOVED AND RETURNED TO TELE DESK. SKIN INTACT. HEALTH TEACHING AND DISCHARGE INSTRUCTIONS GIVEN TO THE PATIENT, VERBALIZED UNDERSTANDING. INSTRUCTED PATIENT TO FOLLOW UP WITH HEMATOLOGY/ONCOLOGY AND FOREIGN BANKNOTE TELLER TRADER. DISCUSSED PRESCRIPTIONS WITH PATIENT. PATIENT LEFT UNIT VIA WHEELCHAIR WITH NO SIGN OF DISTRESS WITH FAMILY MEMBER, ACCOMPANIED BY THIS RN TO THE LOBBY. CHARGE NURSE AWARE OF DISCHARGE.
[2022-11-08 08:07] LABS: IMMUNOGLOBULIN A, SERUM 354 mg/dL (87-352); IMMUNOGLOBULIN G, SERUM 1261 mg/dL (586-1602); IMMUNOGLOBULIN M, SERUM 114 mg/dL (26-217)
[2022-11-08 11:07] LABS: *SPE ALPHA-1-GLOBULIN 0.2 g/dL (0.0-0.4); *SPE ALPHA-2-GLOBULIN 0.6 g/dL (0.4-1.0); *SPE M-SPIKE Not Observed g/dL (Not Observed)
== END 2022-11-07 17:09 | disposition home or self-care (01) | DRG 532 ==
LOC: ER 14:29 → TELE1 19:47
PROVIDERS: ADMIT Nurse Practitioner Acute Care; ATTEND Nurse Practitioner Acute Care
PROC: 30233N1 Transfusion of Nonautologous Red Blood Cells into Peripheral Vein, Percutaneous Approach (ICD-10-PCS; principal; 2022-11-04)
DX: D25.9 Leiomyoma of uterus, unspecified (principal); N17.0 Acute kidney failure with tubular necrosis; E83.41 Hypermagnesemia; D63.8 Anemia in other chronic diseases classified elsewhere; E88.09 Other disorders of plasma-protein metabolism, not elsewhere classified; N92.0 Excessive and frequent menstruation with regular cycle; E66.9 Obesity, unspecified; Z68.36 Body mass index [BMI] 36.0-36.9, adult; D50.0 Iron deficiency anemia secondary to blood loss (chronic); Z20.822 Contact with and (suspected) exposure to COVID-19; E89.0 Postprocedural hypothyroidism; Z98.84 Bariatric surgery status; Z88.0 Allergy status to penicillin; Z82.49 Family history of ischemic heart disease and other diseases of the circulatory system; Z83.3 Family history of diabetes mellitus; Z79.890 Hormone replacement therapy; D72.820 Lymphocytosis (symptomatic)
CPT/HCPCS: 36415; 76770-TC; 76856-TC; 80048-TC; 80053-TC; 80076-TC; 81001; 82607-TC; 82728-TC; 82784; 83540-TC; 83735-TC; 84100-TC; 84155; 84165; 84443-TC; 84703-TC; 85025-TC; 85730-TC; 86334; 86850-TC; 87081-TC; 87086-TC; A4223; C9803; G0378; J2916; J7030; J7040; P9016

== ENCOUNTER 2023-10-30 19:25 | Emergency (ER) | payer BC, OTHER ==
[~2023-10-30] VITALS: Ht 162.6 cm; Wt 85.7 kg
[~2023-10-30 19:25] MED LIST changes: -CEPH250C PO; +LEVO150T8 PO; -LEVO75TA PO
[2023-10-30 19:42] VITALS: TEMP 97.2
[2023-10-30] MEDS ORDERED: ONDANSETRON HCL/PF 4 MG/2 ML VIAL ONE (20:19)
[2023-10-30] MEDS: ONDANSETRON HCL/PF 4 MG/2 ML VIAL IVP ONE (20:23)
[2023-10-30] MEDS: IV NS 0.9% 1,000 ML BAG IV ONE (20:23)
[2023-10-30 21:14] LABS: BASOPHILS # (AUTO) 0.1 K/uL (0.0-0.2); BASOPHILS % (AUTO) 2.4 % (0.0-2.0); EOSINOPHILS # (AUTO) 0.1 K/uL (0.0-0.7); EOSINOPHILS % (AUTO) 2.6 % (0.0-6.0); HEMATOCRIT 21 % (33-45); LYMPHOCYTES # (AUTO) 1.3 K/uL (0.8-4.8); LYMPHOCYTES % (AUTO) 25.9 % (20.0-44.0); MEAN CORPUSCULAR HEMOGLOBIN 21 PG (26.0-33.0); MEAN CORPUSCULAR HGB CONC 30 g/dl (31.0-36.0); MEAN CORPUSCULAR VOLUME 69 fL (82-100); MONOCYTES # (AUTO) 0.6 K/uL (0.1-1.30); MONOCYTES % (AUTO) 11.4 % (2.0-12.0); NEUTROPHILS # (AUTO) 2.9 K/uL (1.8-8.9); NEUTROPHILS % (AUTO) 57.7 % (43.0-81.0); PLATELET COUNT (AUTO) 264 K/uL (150-450); RED CELL DISTRIBUTION WIDTH 17.8 % (11.5-15.0); WHITE BLOOD COUNT (AUTO) 5.1 K/uL (4.3-11.0)
[2023-10-30 21:22] LABS: HEMOGLOBIN 6.4 g/dL (11.5-14.8)
[2023-10-30 21:31] LABS: ALANINE AMINOTRANSFERASE 58 U/L (12-78); ALBUMIN 3.2 g/dL (3.4-5.0); ALKALINE PHOSPHATASE 73 U/L (46-116); ASPARTATE AMINOTRANSFERASE 42 U/L (15-37); BILIRUBIN,DIRECT 0.1 mg/dL (0.0-0.2); BILIRUBIN,TOTAL 0.4 mg/dL (0.2-1.0); CALCIUM, SERUM 8.3 mg/dL (8.5-10.1); CARBON DIOXIDE 24 mmol/L (21-32); CHLORIDE 106 mmol/L (98-107); CREATININE 1.3 mg/dL (0.6-1.3); GLUCOSE 69 mg/dL (74-106); LIPASE 31 U/L (16-77); SODIUM SERUM 138 mmol/L (136-145); UREA NITROGEN, BLOOD 15 mg/dL (7-18)
[2023-10-30 21:36] LABS: ANISOCYTOSIS 1+; EOSINOPHILS % (MANUAL) 5 % (0-4); LYMPHOCYTES % (MANUAL) 24 % (16-48); MONOCYTES % (MANUAL) 13 % (0-11.0); NEUTROPHILS % (MANUAL) 58 (42-76); PLATELET ESTIMATE ADEQUATE
[2023-10-30 21:37] LABS: OVALOCYTES RARE; ROULEAUX 1+
[2023-10-30 21:48] LABS: APPEARANCE,URINE SLIGHTLY CLOUDY (CLEAR); BILIRUBIN,URINE NEGATIVE (NEGATIVE); BLOOD, URINE NEGATIVE Ery/uL (NEGATIVE); COLOR,URINE YELLOW (YELLOW); KETONES,URINE TRACE mg/dL (NEGATIVE); LEUKOCYTE ESTERASE ,URINE TRACE (NEGATIVE); NITRITE, URINE POSITIVE (NEGATIVE); PH,URINE 5.5 (5.0-8.0); PROTEIN,URINE NEGATIVE (NEGATIVE); UGLUCOSE NEGATIVE (NEGATIVE); UROBILINOGEN,URINE 0.2 EU/dL (0.2)
[2023-10-30 21:51] LABS: PREGNANCY TEST URINE QUAL NEGATIVE (NEGATIVE)
[2023-10-30 22:05] LABS: ADD URINE CULTURE YES; BACTERIA,URINE 3+ /HPF (None Seen); HYALINE CASTS, URINE Few /LPF (None Seen); RBC,URINE 0-2 /HPF (0-2)
[2023-10-30] MEDS ORDERED: LEVOFLOXACIN 500 MG /D5W 100ML 100 ML IV ONE (22:48)
[2023-10-30] MEDS: LEVOFLOXACIN 500 MG /D5W 100ML 500 MG/100 ML PIGGYBACK IV ONE (22:54)
[2023-10-30 23:59] LABS: INR 1.08 (0.91-1.10); PROTHROMBIN TIME 11.4 SECS (9.2-11.1)
[2023-10-31 04:10] VITALS: BP 104/72; O2SAT 96
== END 2023-10-31 05:13 | disposition left against medical advice (07) ==
LOC: ER 19:31
DX: N39.0 Urinary tract infection, site not specified (principal); D50.9 Iron deficiency anemia, unspecified; R10.11 Right upper quadrant pain; R11.2 Nausea with vomiting, unspecified; Z88.0 Allergy status to penicillin
CPT/HCPCS: 99285; 96365; 96361; 96366; 96375; 93005; 71045; 74176; 85025; 80048; 83690; 80076; 84703; 85007; 81001; 36415; 84484; 85730; 86850; 86922; 36430; J2405; J7030; J1956; J7040; P9016

== ENCOUNTER 2024-08-05 21:31 | Emergency (ER) | payer OTHER ==
[~2024-08-05] VITALS: Ht 160 cm; Wt 77.1 kg
[2024-08-05 22:02] LABS: BASOPHILS # (AUTO) 0.1 K/uL (0.0-0.2); EOSINOPHILS # (AUTO) 0.1 K/uL (0.0-0.7); HEMATOCRIT 23 % (33-45); MEAN CORPUSCULAR HEMOGLOBIN 22 PG (26.0-33.0); MEAN CORPUSCULAR HGB CONC 30 g/dl (31.0-36.0); MONOCYTES # (AUTO) 0.5 K/uL (0.1-1.30); WHITE BLOOD COUNT (AUTO) 7.7 K/uL (4.3-11.0)
[2024-08-05] MEDS: IV NS 0.9% 1,000 ML BAG IV ONE (22:07)
[2024-08-05 22:08] LABS: BASOPHILS % (AUTO) 1.5 % (0.0-2.0); EOSINOPHILS % (AUTO) 1.4 % (0.0-6.0); MEAN CORPUSCULAR VOLUME 72 fL (82-100); MONOCYTES % (AUTO) 6.6 % (2.0-12.0); NEUTROPHILS % (AUTO) 64.5 % (43.0-81.0); PLATELET COUNT (AUTO) 367 K/uL (150-450); RED BLOOD CELL COUNT(AUTO) 3.18 MIL/uL (4.0-5.2); RED CELL DISTRIBUTION WIDTH 29.3 % (11.5-15.0)
[2024-08-05 22:12] LABS: CALCIUM, SERUM 8.8 mg/dL (8.5-10.1); CREATININE 1.2 mg/dL (0.6-1.3); POTASSIUM 3.8 mmol/L (3.5-5.1)
[2024-08-05 22:23] LABS: HEMOGLOBIN 6.8 g/dL (11.5-14.8)
[2024-08-05 22:41] LABS: ANISOCYTOSIS 2+; PLATELET ESTIMATE ADEQUATE
[2024-08-05] MEDS ORDERED: ACETAMINOPHEN 650 MG/SUPP.RECT RC ONE (23:30)
[2024-08-05] MEDS ORDERED: VANCOMYCIN 1 GM in IV D5W 250 ML IV ONE (23:30)
[2024-08-05] MEDS ORDERED: CEFEPIME 1 GM in IV D5W 50 ML IV ONE (23:30)
[2024-08-06] MEDS ORDERED: MAGNESIUM HYDROXIDE 30 ML UDC PO PRN (10:30)
[2024-08-06] MEDS: PANTOPRAZOLE 40 MG TABLET.DR PO SCH (10:30)
[2024-08-06] MEDS ORDERED: HYDROCODONE/APAP 5/325MG TABLET PO PRN (10:30)
[2024-08-06] MEDS ORDERED: Z GUARD REMEDY 4 OZ OINT TP PRN (10:30)
[2024-08-06] MEDS ORDERED: ACETAMINOPHEN 325 MG TABLET PO PRN (10:30)
[2024-08-06] MEDS ORDERED: ZOLPIDEM TARTRATE 5 MG TABLET PO PRN (10:30)
[2024-08-06] MEDS ORDERED: MAG HYDROX/AL HYDROX/SIMETH 30 ML UDC PO PRN (10:30)
[2024-08-06] MEDS ORDERED: ONDANSETRON HCL/PF 4 MG/2 ML VIAL IVP PRN (10:30)
[2024-08-06] MEDS ORDERED: LEVO125T8 PO (11:35)
[2024-08-06] MEDS: SOD FERRIC GLUC 125 MG in IV NS 0.9% 100 ML IV SCH (14:00)
[2024-08-06 18:09] VITALS: BP 100/75; TEMP 98.5; O2SAT 95
== END 2024-08-06 18:09 | disposition home or self-care (01) ==
LOC: ER 21:33
DX: D50.9 Iron deficiency anemia, unspecified (principal); E66.9 Obesity, unspecified; Z68.30 Body mass index [BMI] 30.0-30.9, adult; R53.1 Weakness; E89.0 Postprocedural hypothyroidism; R00.0 Tachycardia, unspecified; N92.0 Excessive and frequent menstruation with regular cycle; Z79.890 Hormone replacement therapy; Z87.440 Personal history of urinary (tract) infections; Z90.89 Acquired absence of other organs; Z98.84 Bariatric surgery status
CPT/HCPCS: 99285; 86870; 96360; 93005; 85025; 80048; 36415; 85240; 86850 ×2; 86900; 86901; 86880; J7030